=== PATIENT | female | born 1995 ===

== ENCOUNTER → 2016-05-13 | Outpatient (CLI) | payer BC ==
--- NOTE | 2016-05-13 16:56 | DX ---
Left Ankle, Three Views History: M25.579. Comparison: None available. Findings: There is a minimally displaced fracture of the lateral aspect of the talar dome. The ankle mortise is intact. Alignment is normal. A small joint effusion is present. Bone island is noted in th e distal tibia. There is extensive soft tissue swelling, most prominent laterally. Impression: Minimally displaced talar dome fracture. Findings discussed with Bhavin San, covering for Myra Salinas, today at 1648 hours.
== END ==
LOC: FIMAGING 16:19
PROVIDERS: ATTEND Physician Assistant
DX: M25.572 Pain in left ankle and joints of left foot (principal)